=== PATIENT | male | born 1955 | race Caucasian/White ===

== ENCOUNTER 2016-07-19 20:05 | Inpatient (IN) | payer MEDICARE, OTHER ==
[~2016-07-19] VITALS: Ht 182.9 cm; Wt 101.2 kg
[2016-07-19 20:00] VITALS: BP 164/108
[~2016-07-19 20:05] MED LIST: [UNRECOGNIZED DRUG - OTHER]
[2016-07-19] MEDS ORDERED: IV NORMAL SALINE 500 ML BAG IV ONE (20:30)
[2016-07-19] MEDS ORDERED: ONDANSETRON 4 MG/2 ML VIAL IV ONE (20:30)
[2016-07-19] MEDS ORDERED: CHOL20004 PO (20:37)
[2016-07-19] MEDS ORDERED: METF10002 PO (20:37)
[2016-07-19] MEDS ORDERED: SITA100T PO (20:37)
[2016-07-19] MEDS ORDERED: GLIM4TAB3 PO (20:37)
[2016-07-19] MEDS ORDERED: AMLO5TAB2 PO (20:37)
[2016-07-19] MEDS ORDERED: ONDANSETRON 4 MG/2 ML VIAL ONE (20:51)
[2016-07-19 20:52] LABS: BASOPHILS % (AUTO) 0.3 % (0.0-2.0); EOSINOPHILS % (AUTO) 0.3 % (0.0-7.0); HEMATOCRIT 51.5 % (40-50); HEMOGLOBIN 16.7 G/DL (14.0-18.0); LYMPHOCYTES # (AUTO) 1.1 K/UL (0.8-4.8); LYMPHOCYTES % (AUTO) 13.6 % (20.5-51.5); MEAN CORPUSCULAR HEMOGLOBIN 27.4 UUG (27.0-31.0); MEAN CORPUSCULAR HGB CONC 33 g/dL (32.0-37.0); MEAN CORPUSCULAR VOLUME 84.5 FL (82.0-92.0); MONOCYTES # (AUTO) 0.3 K/UL (0.1-1.30); MONOCYTES % (AUTO) 3.1 % (0.0-11.0); NEUTROPHILS % (AUTO) 82.7 % (38.5-71.5); PLATELET COUNT (AUTO) 189 K/UL (150-450); RED CELL DISTRIBUTION WIDTH 13.1 % (11.5-14.5); WHITE BLOOD COUNT (AUTO) 8.4 K/UL (4.0-11.2)
[2016-07-19] MEDS ORDERED: CHOL100053 PO (20:52)
[2016-07-19] MEDS ORDERED: OMEG1CAP55 PO (20:52)
[2016-07-19] MEDS ORDERED: ERGO500047 PO (20:52)
[2016-07-19] MEDS ORDERED: LOSA100T15 PO (20:52)
[2016-07-19 21:00] LABS: CALCIUM 9.4 mg/dL (8.5-10.1); CREATININE 1.1 mg/dL (0.6-1.3); POTASSIUM 3.9 mmol/L (3.5-5.1)
[2016-07-19 21:07] LABS: BAND % (MANUAL) 5 % (0-10); LYMPHOCYTES % (MANUAL) 14 % (20-40); MONOCYTES % (MANUAL) 7 % (2-10); NEUTROPHILS % (MANUAL) 74 % (42-75); PLATELET ESTIMATE ADEQUATE
[2016-07-19 21:09] LABS: BILIRUBIN,TOTAL 0.7 mg/dL (0.1-1.0)
[2016-07-19 21:10] LABS: ALBUMIN 3.6 g/dL (3.4-5.0); BILIRUBIN,DIRECT 0.1 mg/dL (0.0-0.2); TOTAL PROTEIN, SERUM 7.6 g/dL (6.4-8.2)
[2016-07-19] MEDS ORDERED: INSULIN REGULAR, HUMAN 1,000 UNITS/10 ML VIAL SUBCUT ONE (21:15)
[2016-07-19] MEDS ORDERED: INSULIN REGULAR, HUMAN 300 UNIT/3 ML VIAL ONE (21:32)
[2016-07-19 22:10] VITALS: BP 164/108
[2016-07-19] MEDS ORDERED: MAGNESIUM HYDROXIDE 30 ML LIQUID UDC PO PRN (22:15)
[2016-07-19] MEDS ORDERED: Z GUARD REMEDY PASTE 57 GM TUBE TOP PRN (22:15)
[2016-07-19] MEDS ORDERED: HYDROCODONE/APAP 5-325MG TABLET PO PRN (22:15)
[2016-07-19] MEDS ORDERED: LABETALOL HCL 100 MG/20 ML VIAL IV PRN (22:15)
[2016-07-19] MEDS ORDERED: ZOLPIDEM 5 MG TABLET PO PRN (22:15)
[2016-07-19] MEDS ORDERED: ACETAMINOPHEN 325 MG TABLET PO PRN (22:15)
[2016-07-19] MEDS ORDERED: ONDANSETRON 4 MG/2 ML VIAL IV PRN (22:15)
[2016-07-19] MEDS ORDERED: ERGOCALCIFEROL 50,000 UNIT CAPSULE PO SCH (22:15)
[2016-07-19] MEDS ORDERED: DEXTROSE 50% 50 ML DISP.SYRIN IV PRN (22:30)
[2016-07-19 23:53] LABS: ALBUMIN 3.4 g/dL (3.4-5.0); BILIRUBIN,TOTAL 0.6 mg/dL (0.2-1.0); CREATININE 1.1 mg/dL (0.6-1.3); POTASSIUM 3.8 mmol/L (3.5-5.1); TOTAL PROTEIN, SERUM 7.3 g/dL (6.4-8.2)
[2016-07-20] VITALS (18 sets, daily range): BP systolic 121–154; BP diastolic 71–103
[2016-07-20 00:23] LABS: THYROID STIMULATING HORMONE 0.753 mIU/mL (0.358-3.740)
[2016-07-20] MEDS: BLOOD SUGAR DIAGNOSTIC 1 EACH STRIP VI SCH ×4 (00:59→19:38)
[2016-07-20] MEDS: INSULIN REGULAR, HUMAN 300 UNIT/3 ML VIAL SQ PRN ×4 (01:10→19:41)
[2016-07-20] MEDS ORDERED: INSULIN REGULAR, HUMAN 300 UNIT/3 ML VIAL ONE (01:26)
[2016-07-20 06:41] LABS: BASOPHILS % (AUTO) 0.5 % (0.0-2.0); EOSINOPHILS # (AUTO) 0.1 K/uL (0.0-0.7); EOSINOPHILS % (AUTO) 0.9 % (0.0-7.0); HEMATOCRIT 48.7 % (40-50); HEMOGLOBIN 16.3 G/DL (14.0-18.0); LYMPHOCYTES # (AUTO) 1.9 K/UL (0.8-4.8); LYMPHOCYTES % (AUTO) 22.6 % (20.5-51.5); MEAN CORPUSCULAR HEMOGLOBIN 28.1 UUG (27.0-31.0); MEAN CORPUSCULAR HGB CONC 33 g/dL (32.0-37.0); MEAN CORPUSCULAR VOLUME 84.2 FL (82.0-92.0); MONOCYTES # (AUTO) 0.5 K/UL (0.1-1.30); MONOCYTES % (AUTO) 6.5 % (0.0-11.0); NEUTROPHILS # (AUTO) 5.7 K/UL (1.8-8.9); NEUTROPHILS % (AUTO) 69.5 % (38.5-71.5); PLATELET COUNT (AUTO) 193 K/UL (150-450); RED BLOOD CELL COUNT(AUTO) 5.78 MIL/UL (4.7-6.1); RED CELL DISTRIBUTION WIDTH 13.5 % (11.5-14.5); WHITE BLOOD COUNT (AUTO) 8.2 K/UL (4.0-11.2)
[2016-07-20 06:52] LABS: CALCIUM 9.1 mg/dL (8.5-10.1); CREATININE 1.2 mg/dL (0.6-1.3); MAGNESIUM 1.5 mg/dL (1.8-2.4); PHOSPHOROUS 3.4 mg/dL (2.5-4.9)
[2016-07-20 07:45] LABS: *BLOOD, URINE Trace-lysed (NEGATIVE); *CLARITY,URINE CLEAR (CLEAR); *COLOR,URINE DARK YELLOW (YELLOW); *KETONES,URINE NEGATIVE (NEGATIVE); *UROBILINOGEN,URINE 0.2 E.U./dl (NORMAL); LEUKOCYTE ESTERASE ,URINE NEGATIVE (NEGATIVE); NITRITE, URINE NEGATIVE (NEGATIVE); PH,URINE 5.5 (5.0-8.0)
[2016-07-20 07:57] LABS: *BILIRUBIN,URIN 1+ (NEGATIVE); *PROTEIN,URINE 3+ (NEGATIVE)
[2016-07-20 07:58] LABS: UGLUCOSE 2+ (NEGATIVE)
[2016-07-20 08:00] LABS: ICTOTEST NEGATIVE (NEGATIVE)
[2016-07-20 08:01] LABS: BACTERIA,URINE FEW /HPF (NONE SEEN); MUCUS,URINE FEW /LPF (0-FEW); RBC,URINE 0-3 /HPF (0-3); SQUAMOUS EPITHELIAL CELL,UR FEW /HPF (NONE SEEN); WBC,URINE 0-3 /HPF (0-3); YEAST,URINE FEW /HPF (NONE SEEN)
[2016-07-20] MEDS: METFORMIN HCL 500 MG TABLET PO SCH ×2 (08:05→18:36)
[2016-07-20] MEDS: GLIMEPIRIDE 4 MG TABLET PO SCH ×2 (08:05→18:36)
[2016-07-20] MEDS: LINAGLIPTIN 5 MG TABLET PO SCH (08:53)
[2016-07-20] MEDS ORDERED: Medication Not On Formulary EA (Sitagliptin Phosphate (Januvia) 100 MG) PO SCH (09:00)
[2016-07-20] MEDS ORDERED: OMEGA ACID ETHYL ESTERS PO SCH (09:00)
[2016-07-20] MEDS ORDERED: CHOLECALCIFEROL PO SCH (09:00)
[2016-07-20] MEDS ORDERED: Medication Not On Formulary EA (Metformin Hcl 1,000 MG) PO SCH (09:00)
[2016-07-20] MEDS: MAGNESIUM SULFATE/D5W 100 ML IV SCH ×2 (09:38→10:42)
[2016-07-20] MEDS ORDERED: CHOL10002 PO (09:54)
[2016-07-20] MEDS ORDERED: ASPIRIN 325 MG TABLET PO STA (19:28)
[2016-07-20] MEDS: OMEGA-3 FATTY ACIDS/FISH OIL CAPSULE PO SCH (19:39)
[2016-07-21] VITALS (8 sets, daily range): BP systolic 113–144; BP diastolic 63–95
[2016-07-21] MEDS: BLOOD SUGAR DIAGNOSTIC 1 EACH STRIP VI SCH ×5 (00:12→21:34)
[2016-07-21 05:34] LABS: BASOPHILS % (AUTO) 0.5 % (0.0-2.0); EOSINOPHILS # (AUTO) 0.1 K/uL (0.0-0.7); EOSINOPHILS % (AUTO) 0.9 % (0.0-7.0); HEMATOCRIT 48.5 % (40-50); HEMOGLOBIN 16.4 G/DL (14.0-18.0); LYMPHOCYTES % (AUTO) 21.3 % (20.5-51.5); MEAN CORPUSCULAR HEMOGLOBIN 28.7 UUG (27.0-31.0); MEAN CORPUSCULAR HGB CONC 34 g/dL (32.0-37.0); MEAN CORPUSCULAR VOLUME 84.8 FL (82.0-92.0); MONOCYTES # (AUTO) 0.6 K/UL (0.1-1.30); MONOCYTES % (AUTO) 6.3 % (0.0-11.0); NEUTROPHILS # (AUTO) 6.6 K/UL (1.8-8.9); PLATELET COUNT (AUTO) 190 K/UL (150-450); RED BLOOD CELL COUNT(AUTO) 5.72 MIL/UL (4.7-6.1); RED CELL DISTRIBUTION WIDTH 13.4 % (11.5-14.5); WHITE BLOOD COUNT (AUTO) 9.3 K/UL (4.0-11.2)
[2016-07-21 05:36] LABS: CALCIUM 8.9 mg/dL (8.5-10.1); CREATININE 1.1 mg/dL (0.6-1.3); MAGNESIUM 1.5 mg/dL (1.8-2.4); POTASSIUM 3.6 mmol/L (3.5-5.1)
[2016-07-21] MEDS ORDERED: ASPIRIN 325 MG TABLET PO SCH (09:00)
[2016-07-21] MEDS ORDERED: CHOLECALCIFEROL 1,000 UNIT TABLET PO SCH (09:00)
[2016-07-21] MEDS: OMEGA-3 FATTY ACIDS/FISH OIL CAPSULE PO SCH ×2 (09:13→21:30)
[2016-07-21] MEDS: METFORMIN HCL 500 MG TABLET PO SCH (09:14)
[2016-07-21] MEDS: GLIMEPIRIDE 4 MG TABLET PO SCH ×2 (09:14→18:02)
[2016-07-21] MEDS: LINAGLIPTIN 5 MG TABLET PO SCH (09:16)
[2016-07-21] MEDS ORDERED: ROSU20TA PO (10:50)
[2016-07-21] MEDS ORDERED: ERGO500047 PO (11:12)
[2016-07-21] MEDS ORDERED: CLOPIDOGREL 75 MG TABLET PO STA (11:40)
[2016-07-21] MEDS ORDERED: IOHEXOL 350 100 ML INFUS..BTL ONE (12:23)
[2016-07-21] MEDS ORDERED: NORMAL SALINE FLUSH 10 ML DISP.SYRIN ONE (12:23)
[2016-07-21] MEDS ORDERED: IV NORMAL SALINE 250 ML IV ONE (12:23)
[2016-07-21] MEDS: INSULIN REGULAR, HUMAN 300 UNIT/3 ML VIAL SQ PRN ×3 (13:15→21:36)
[2016-07-21] MEDS: MAGNESIUM SULFATE/D5W 100 ML IV SCH ×2 (13:29→14:45)
[2016-07-21] MEDS ORDERED: ATORVASTATIN 40 MG TABLET PO SCH (21:00)
[2016-07-21] MEDS ORDERED: HOME MED MISCELLANEOUS PO SCH (21:00)
[2016-07-22] VITALS: BP 132/91
[2016-07-22 02:00] VITALS: BP 148/93
[2016-07-22 04:00] VITALS: BP 127/94
[2016-07-22 05:00] LABS: CALCIUM 8.9 mg/dL (8.5-10.1); MAGNESIUM 1.6 mg/dL (1.8-2.4); POTASSIUM 3.6 mmol/L (3.5-5.1)
[2016-07-22 05:02] LABS: BASOPHILS # (AUTO) 0.1 K/uL (0.0-8.0); BASOPHILS % (AUTO) 0.7 % (0.0-2.0); EOSINOPHILS # (AUTO) 0.1 K/uL (0.0-0.7); HEMATOCRIT 47.8 % (40-50); HEMOGLOBIN 16.1 G/DL (14.0-18.0); LYMPHOCYTES # (AUTO) 2.2 K/UL (0.8-4.8); LYMPHOCYTES % (AUTO) 27.2 % (20.5-51.5); MEAN CORPUSCULAR HEMOGLOBIN 28.4 UUG (27.0-31.0); MEAN CORPUSCULAR HGB CONC 34 g/dL (32.0-37.0); MEAN CORPUSCULAR VOLUME 84.6 FL (82.0-92.0); MONOCYTES # (AUTO) 0.7 K/UL (0.1-1.30); MONOCYTES % (AUTO) 8.1 % (0.0-11.0); NEUTROPHILS # (AUTO) 4.9 K/UL (1.8-8.9); PLATELET COUNT (AUTO) 186 K/UL (150-450); RED BLOOD CELL COUNT(AUTO) 5.66 MIL/UL (4.7-6.1); RED CELL DISTRIBUTION WIDTH 13.3 % (11.5-14.5)
[2016-07-22 06:00] VITALS: BP 152/99
[2016-07-22 08:00] VITALS: BP 125/84
[2016-07-22] MEDS: BLOOD SUGAR DIAGNOSTIC 1 EACH STRIP VI SCH ×2 (08:14→12:12)
[2016-07-22] MEDS ORDERED: CLOPIDOGREL 75 MG TABLET PO SCH (09:00)
[2016-07-22] MEDS ORDERED: ASPIRIN EC 81 MG TABLET.DR PO SCH (09:00)
[2016-07-22] MEDS: OMEGA-3 FATTY ACIDS/FISH OIL CAPSULE PO SCH (09:12)
[2016-07-22] MEDS: GLIMEPIRIDE 4 MG TABLET PO SCH (09:12)
[2016-07-22 12:00] VITALS: BP 145/99
[2016-07-22] MEDS: INSULIN REGULAR, HUMAN 300 UNIT/3 ML VIAL SQ PRN (12:16)
[2016-07-22] MEDS ORDERED: ASPI-618 PO (13:27)
[2016-07-22] MEDS ORDERED: Zolpidem Tartrate PO (13:27)
[2016-07-22] MEDS ORDERED: CLOP75TA2 PO (13:27)
[2016-07-22] MEDS ORDERED: HYDR-3326 PO (13:27)
[2016-07-22] MEDS ORDERED: Blood Sugar Diagnostic VI (13:27)
[2016-07-22] MEDS ORDERED: MAGNESIUM SULFATE/D5W 100 ML IV SCH (14:30)
[2016-07-23] MEDS ORDERED: METFORMIN HCL 500 MG TABLET PO SCH (18:00)
[2016-07-24] MEDS ORDERED: ERGOCALCIFEROL 50,000 UNIT CAPSULE PO SCH (09:00)
== END 2016-07-22 15:10 | DRG 64 ==
LOC: ER 20:05 → TELE 22:05 → TELE-TD 23:35 → CCU 07-20 00:03
PROVIDERS: ADMIT Family Medicine; ATTEND Family Medicine
DX: I63.011 Cerebral infarction due to thrombosis of right vertebral artery (principal); Q04.3 Other reduction deformities of brain; C79.31 Secondary malignant neoplasm of brain; R26.0 Ataxic gait; I10 Essential (primary) hypertension; R29.700 NIHSS score 0; Z87.891 Personal history of nicotine dependence; Z92.3 Personal history of irradiation; Z85.118 Personal history of other malignant neoplasm of bronchus and lung; Z82.49 Family history of ischemic heart disease and other diseases of the circulatory system; Z80.51 Family history of malignant neoplasm of kidney; E78.5 Hyperlipidemia, unspecified; E55.9 Vitamin D deficiency, unspecified; E11.65 Type 2 diabetes mellitus with hyperglycemia; Z79.84 Long term (current) use of oral hypoglycemic drugs; G93.89 Other specified disorders of brain; Z92.21 Personal history of antineoplastic chemotherapy
CPT/HCPCS: 36415; 70030-TC; 70450; 70496; 70551; 71010; 83690; 83735; 84100; 84443; 85025; 85651; 85730; 92610; 93005; 93307; 97001; 97003; 97116; 97530; A4663; J1815; J2405; J3475; J3490; J7040; J7050; Q9967

== ENCOUNTER 2016-07-22 15:52 | Inpatient (IN) | payer MEDICARE, OTHER ==
[~2016-07-22] VITALS: Ht 182.9 cm; Wt 101.2 kg
[~2016-07-22 15:52] MED LIST changes: +AMLO5TAB2 PO; +ASPI-618 PO; +Blood Sugar Diagnostic VI; +CLOP75TA2 PO; +ERGO500047 PO; +GLIM4TAB3 PO; +HYDR-3326 PO; +LOSA100T15 PO; +METF10002 PO; +OMEG1CAP55 PO; +ROSU20TA PO; +Zolpidem Tartrate PO; -[UNRECOGNIZED DRUG - OTHER]
[2016-07-22 17:02] VITALS: BP 144/97
--- NOTE | 2016-07-22 18:30 | NUR ---
PT Is in no acute distress. Skin intact. Pt strength equal on both sides. Medications reconciled. New Orders received from Dr Kimbrough. Call light is within reach.
[2016-07-22] MEDS ORDERED: ZOLPIDEM 5 MG TABLET PO PRN (18:45)
[2016-07-22] MEDS ORDERED: HYDROCODONE/APAP 5-325MG TABLET PO PRN (18:45)
[2016-07-22] MEDS ORDERED: DEXTROSE 50% 50 ML DISP.SYRIN IV PRN (19:00)
--- NOTE | 2016-07-22 19:30 | NUR ---
RECEIVED PATIENT AWAKE, ALERT AND ORIENTED X3, VISITING WITH FAMILY AT BEDSIDE. C/O SOME ATAXIA TO THE RIGHT WHEN AMBULATING. ON BEDREST TONIGHT UNTIL PT EVAL IN AM. EQUAL BILATERAL HANDGRIPS AND FOOT STRENGTHS. NO C/O PAIN. IN NAD AT THIS TIME.CALL LIGHT WITHIN REACH
[2016-07-22 20:00] VITALS: BP 150/106
[2016-07-22] MEDS ORDERED: CLONIDINE HCL 0.1 MG TABLET PO PRN (20:45)
[2016-07-22] MEDS: ATORVASTATIN 40 MG TABLET PO SCH (21:27)
[2016-07-22] MEDS: BLOOD SUGAR DIAGNOSTIC 1 EACH STRIP VI SCH (21:31)
[2016-07-22 21:32] VITALS: BP 140/90
[2016-07-22] MEDS: INSULIN REGULAR, HUMAN 300 UNITS/3 ML VIAL SQ PRN (21:37)
--- NOTE | 2016-07-23 06:00 | NUR ---
SLEPT WELL TONIGHT.NO C/O THIS MORNING. COMFORTABLE.NO CHANGE IN NEURO STATUS. CALL LIGHT WITHIN REACH AAT
[2016-07-23] MEDS: BLOOD SUGAR DIAGNOSTIC 1 EACH STRIP VI SCH ×4 (07:03→21:32)
[2016-07-23 08:00] VITALS: BP 131/95
[2016-07-23] MEDS: GLIMEPIRIDE 4 MG TABLET PO SCH ×2 (08:43→18:07)
[2016-07-23] MEDS: INSULIN REGULAR, HUMAN 300 UNIT/3 ML VIAL SQ PRN (08:49)
[2016-07-23] MEDS: CLOPIDOGREL 75 MG TABLET PO SCH (08:50)
[2016-07-23] MEDS: AMLODIPINE 5 MG TABLET PO SCH (08:51)
[2016-07-23] MEDS: ASPIRIN 81 MG TAB.CHEW PO SCH (08:51)
[2016-07-23] MEDS: LOSARTAN POTASSIUM 50 MG TABLET PO SCH (08:52)
[2016-07-23] MEDS ORDERED: Medication Not On Formulary EA (Losartan Potassium 100 MG) PO SCH (09:00)
[2016-07-23] MEDS ORDERED: Medication Not On Formulary EA (Metformin Hcl 1,000 MG) PO SCH (09:00)
[2016-07-23] MEDS: OMEGA-3 FATTY ACIDS/FISH OIL CAPSULE PO SCH (09:14)
[2016-07-23] MEDS: INSULIN REGULAR, HUMAN 300 UNITS/3 ML VIAL SQ PRN ×3 (11:39→21:38)
--- NOTE | 2016-07-23 14:58 | NUR ---
IDT MEETING 07/23/16
[2016-07-23 16:32] VITALS: BP 112/70
[2016-07-23] MEDS ORDERED: HYDROCODONE/APAP 5-325MG TABLET PO PRN (16:45)
[2016-07-23] MEDS: METFORMIN HCL 500 MG TABLET PO SCH (18:07)
--- NOTE | 2016-07-23 20:00 | NUR ---
received to care, lying in bed, pleasant upon approach. uses urinal. assisted to all needs. denies pain or discomfort. c/l in reach. will continue to monitor.
[2016-07-23] MEDS: ATORVASTATIN 40 MG TABLET PO SCH (21:29)
--- NOTE | 2016-07-23 22:00 | NUR ---
appears to be asleep. no distress noted.
--- NOTE | 2016-07-24 05:00 | NUR ---
pt is now awake. had 1 episode of emesis, 90 ml of yellow liquid. stated immediately afterward that he felt better. denies any nausea. will continue to monitor closely.
--- NOTE | 2016-07-24 06:45 | NUR ---
is being seen by OT. continues to deny nausea/vomiting. will continue to monitor.
[2016-07-24] MEDS: BLOOD SUGAR DIAGNOSTIC 1 EACH STRIP VI SCH ×4 (06:53→22:58)
[2016-07-24 07:30] VITALS: BP 108/72
[2016-07-24] MEDS: AMLODIPINE 5 MG TABLET PO SCH (08:07)
[2016-07-24] MEDS: OMEGA-3 FATTY ACIDS/FISH OIL CAPSULE PO SCH (08:07)
[2016-07-24] MEDS: METFORMIN HCL 500 MG TABLET PO SCH ×2 (08:07→16:24)
[2016-07-24] MEDS: LOSARTAN POTASSIUM 50 MG TABLET PO SCH (08:08)
[2016-07-24] MEDS: CLOPIDOGREL 75 MG TABLET PO SCH (08:08)
[2016-07-24] MEDS: ASPIRIN 81 MG TAB.CHEW PO SCH (08:08)
[2016-07-24] MEDS: GLIMEPIRIDE 4 MG TABLET PO SCH ×2 (08:08→16:24)
[2016-07-24] MEDS: ERGOCALCIFEROL 50,000 UNIT CAPSULE PO SCH (08:09)
[2016-07-24] MEDS: INSULIN REGULAR, HUMAN 300 UNIT/3 ML VIAL SQ PRN ×3 (08:15→16:29)
[2016-07-24] MEDS ORDERED: CLOPIDOGREL 75 MG TABLET PO SCH (09:00)
[2016-07-24] MEDS ORDERED: ASPIRIN EC 81 MG TABLET.DR PO SCH (09:00)
--- NOTE | 2016-07-24 13:07 | NUR ---
POST PT PATIENT EATING LUNCH. TOLERATED WELL WITH PT.
--- NOTE | 2016-07-24 16:18 | NUR ---
Building Contractor SW met with patient at beside to assess pt needs and provide support. The patient is a 61 year old male admitted for Cerebral ataxia. The patient was laying in his bed during the interview. He was alert and oriented x3. The patient was calm and cooperative during the interview. The patient's mood was depressed and withdrawn. He did not attempt to engage in interview with the interviewer. He stated, "Everything is okay. Thank you." The patient would like to return home upon discharge. The patient stated that his emergency contact is his son Thad Mccormack [phone]. The patient has good social support at home. SW engaged in active listening and provided supportive counseling during the interview. SW will be available as needed.
[2016-07-24 20:43] VITALS: BP 125/88
[2016-07-24] MEDS: ATORVASTATIN 40 MG TABLET PO SCH (21:28)
[2016-07-24] MEDS: INSULIN REGULAR, HUMAN 300 UNITS/3 ML VIAL SQ PRN (23:48)
[2016-07-25 06:49] LABS: BASOPHILS % (AUTO) 0.5 % (0.0-2.0); EOSINOPHILS # (AUTO) 0.1 K/uL (0.0-0.7); HEMATOCRIT 49.8 % (40-50); LYMPHOCYTES # (AUTO) 2.5 K/UL (0.8-4.8); LYMPHOCYTES % (AUTO) 29.7 % (20.5-51.5); MEAN CORPUSCULAR HEMOGLOBIN 29.1 UUG (27.0-31.0); MEAN CORPUSCULAR HGB CONC 34 g/dL (32.0-37.0); MEAN CORPUSCULAR VOLUME 84.9 FL (82.0-92.0); MONOCYTES # (AUTO) 0.5 K/UL (0.1-1.30); MONOCYTES % (AUTO) 6.2 % (0.0-11.0); NEUTROPHILS # (AUTO) 5.4 K/UL (1.8-8.9); NEUTROPHILS % (AUTO) 62.6 % (38.5-71.5); PLATELET COUNT (AUTO) 188 K/UL (150-450); RED BLOOD CELL COUNT(AUTO) 5.86 MIL/UL (4.7-6.1); WHITE BLOOD COUNT (AUTO) 8.5 K/UL (4.0-11.2)
[2016-07-25 07:19] LABS: THYROID STIMULATING HORMONE 1.624 mIU/mL (0.358-3.740)
[2016-07-25] MEDS: BLOOD SUGAR DIAGNOSTIC 1 EACH STRIP VI SCH ×4 (07:30→20:31)
[2016-07-25 07:52] LABS: BILIRUBIN,TOTAL 0.4 mg/dL (0.2-1.0); CREATININE 1.2 mg/dL (0.6-1.3); MAGNESIUM 1.5 mg/dL (1.8-2.4); PHOSPHOROUS 3.9 mg/dL (2.5-4.9); POTASSIUM 4.1 mmol/L (3.5-5.1); TOTAL PROTEIN, SERUM 7.1 g/dL (6.4-8.2)
[2016-07-25 08:00] VITALS: BP 116/81
[2016-07-25] MEDS: AMLODIPINE 5 MG TABLET PO SCH (09:00)
[2016-07-25] MEDS: OMEGA-3 FATTY ACIDS/FISH OIL CAPSULE PO SCH (10:16)
[2016-07-25] MEDS: GLIMEPIRIDE 4 MG TABLET PO SCH ×2 (10:16→17:58)
[2016-07-25] MEDS: CLOPIDOGREL 75 MG TABLET PO SCH (10:16)
[2016-07-25] MEDS: ASPIRIN 81 MG TAB.CHEW PO SCH (10:16)
[2016-07-25] MEDS: LOSARTAN POTASSIUM 50 MG TABLET PO SCH (10:17)
[2016-07-25] MEDS: METFORMIN HCL 500 MG TABLET PO SCH ×2 (10:17→17:58)
[2016-07-25] MEDS: INSULIN REGULAR, HUMAN 300 UNIT/3 ML VIAL SQ PRN (12:32)
[2016-07-25] MEDS ORDERED: MAGNESIUM SULFATE/D5W 100 ML IV SCH (15:15)
--- NOTE | 2016-07-25 18:24 | NUR ---
DAILY NURSING NOTE ENCOURAGE HIM TO EAT EVENING BLOOD SUGAR WAS 81. HE HAD SMALL AMT OF LUNCH AT 75% OF DINNER. LEFT SNACK AT HIS BED SIDE ENCOURAGE HIM TO HAVE FAMILY BRING FOODS ZENA [employer] LIKES
--- NOTE | 2016-07-25 19:33 | NUR ---
PT VOLUNTARILY WALKED TWICE AROUND FROM STATION TO ROOM . PT WALKED WITH WALKER AND WITH SUPERVISION . PT REQUESTED CPM. WILL CONTINUE TO REASSESS PATIENT FOR DISTRESS
[2016-07-25] MEDS: ATORVASTATIN 40 MG TABLET PO SCH (20:24)
[2016-07-25 20:30] VITALS: BP 128/92
[2016-07-26] MEDS: BLOOD SUGAR DIAGNOSTIC 1 EACH STRIP VI SCH ×4 (07:08→20:16)
[2016-07-26 08:00] VITALS: BP 128/85
[2016-07-26] MEDS: OMEGA-3 FATTY ACIDS/FISH OIL CAPSULE PO SCH (10:52)
[2016-07-26] MEDS: METFORMIN HCL 500 MG TABLET PO SCH ×2 (10:53→17:25)
[2016-07-26] MEDS: AMLODIPINE 5 MG TABLET PO SCH (10:53)
[2016-07-26] MEDS: GLIMEPIRIDE 4 MG TABLET PO SCH ×2 (10:53→17:25)
[2016-07-26] MEDS: CLOPIDOGREL 75 MG TABLET PO SCH (10:53)
[2016-07-26] MEDS: LOSARTAN POTASSIUM 50 MG TABLET PO SCH (10:53)
[2016-07-26] MEDS: ASPIRIN 81 MG TAB.CHEW PO SCH (10:54)
[2016-07-26] MEDS: ATORVASTATIN 40 MG TABLET PO SCH (20:16)
[2016-07-26 20:34] VITALS: BP 105/75
[2016-07-26] MEDS: INSULIN REGULAR, HUMAN 300 UNITS/3 ML VIAL SQ PRN (20:43)
--- NOTE | 2016-07-27 03:19 | NUR ---
Patient reported an episode of upset stomach with vomiting. Patient does not want nausea medication, but accepted a Diet lemon torres martinez soda and crackers to help settle his stomach. Will f/u. Will continue to monitor
--- NOTE | 2016-07-27 04:20 | NUR ---
No stomach discomfort or vomiting reported by patient. Will continue to monitor
[2016-07-27] MEDS: BLOOD SUGAR DIAGNOSTIC 1 EACH STRIP VI SCH ×4 (06:59→21:48)
[2016-07-27 08:00] VITALS: BP 101/71
--- NOTE | 2016-07-27 08:00 | NUR ---
Discussed plan of care with pt re: fall precaution and try to be as independent as possible. Pt agreeable with plan of care. Call light is within reach.
[2016-07-27] MEDS: GLIMEPIRIDE 4 MG TABLET PO SCH ×2 (08:06→16:45)
[2016-07-27] MEDS: OMEGA-3 FATTY ACIDS/FISH OIL CAPSULE PO SCH (08:06)
[2016-07-27] MEDS: METFORMIN HCL 500 MG TABLET PO SCH ×2 (08:06→16:45)
[2016-07-27] MEDS: ASPIRIN 81 MG TAB.CHEW PO SCH (08:07)
[2016-07-27] MEDS: AMLODIPINE 5 MG TABLET PO SCH (08:07)
[2016-07-27] MEDS: CLOPIDOGREL 75 MG TABLET PO SCH (08:07)
[2016-07-27] MEDS: LOSARTAN POTASSIUM 50 MG TABLET PO SCH (08:07)
[2016-07-27] MEDS: INSULIN REGULAR, HUMAN 300 UNIT/3 ML VIAL SQ PRN (08:11)
[2016-07-27] MEDS ORDERED: MAG HYDROX/AL HYDROX/SIMETH 30 ML LIQUID UDC PO PRN (09:00)
--- NOTE | 2016-07-27 09:00 | NUR ---
Pt c/o stomach upset. Spoke with Dedra got new orders for MAALOX. Maalox given. Will monitor pt. Pt had very poor appetite for breakfast. Pt is in no acute distress. Call light is within reach.
[2016-07-27 11:35] VITALS: BP 111/68
--- NOTE | 2016-07-27 14:00 | NUR ---
Pt c/o having an "acidic stomach" Called in to Dr sam. Armando ordered and given.
[2016-07-27] MEDS: PANTOPRAZOLE SODIUM 40 MG TABLET.DR PO SCH (14:22)
[2016-07-27] MEDS: PATIENT MAY USE OWN MED- MD OK PO SCH (16:24)
--- NOTE | 2016-07-27 18:00 | NUR ---
Pt is in no acute distress. Call light is within in reach.
[2016-07-27 20:52] VITALS: BP 124/92
[2016-07-27] MEDS: ATORVASTATIN 40 MG TABLET PO SCH (21:41)
[2016-07-28] MEDS: PANTOPRAZOLE SODIUM 40 MG TABLET.DR PO SCH (07:01)
[2016-07-28] MEDS: BLOOD SUGAR DIAGNOSTIC 1 EACH STRIP VI SCH ×4 (07:04→20:24)
[2016-07-28 07:20] VITALS: BP 124/78
--- NOTE | 2016-07-28 08:00 | NUR ---
Pt denies of any episodes of vomiting last night. Pt states he if feeling "a little bit better" pt has better appetite today than yesterday. Discussed with pt plan of care re: pain management, fall precautions, and being as independently safe doing self care. Pt agreeable with plan. Pt also was calling for assistance when needed. Pt alert and oriented x 4 and able to make his needs known. Call light is within reach.
[2016-07-28] MEDS: PATIENT MAY USE OWN MED- MD OK PO SCH (08:21)
[2016-07-28] MEDS: ASPIRIN 81 MG TAB.CHEW PO SCH (08:21)
[2016-07-28] MEDS: GLIMEPIRIDE 4 MG TABLET PO SCH ×2 (08:21→17:34)
[2016-07-28] MEDS: OMEGA-3 FATTY ACIDS/FISH OIL CAPSULE PO SCH (08:22)
[2016-07-28] MEDS: AMLODIPINE 5 MG TABLET PO SCH (08:22)
[2016-07-28] MEDS: METFORMIN HCL 500 MG TABLET PO SCH ×2 (08:22→17:34)
[2016-07-28] MEDS: LOSARTAN POTASSIUM 50 MG TABLET PO SCH (08:23)
[2016-07-28] MEDS: CLOPIDOGREL 75 MG TABLET PO SCH (08:23)
[2016-07-28] MEDS: INSULIN REGULAR, HUMAN 300 UNIT/3 ML VIAL SQ PRN (12:18)
--- NOTE | 2016-07-28 15:53 | NUR ---
Pt tolerated physical therapy sessions. Pt denies any c/o pain. pt doesnt like food from cafeteria but eats family brought in foods.
--- NOTE | 2016-07-28 19:30 | NUR ---
RECEIVED PATIENT IN BED WITH FAMILY SUPPORT AT BEDSIDE. LESS SAD TODAY REGARDING RELATIVES RECENT PASSING.IN NAD AT PRESENT. NO C/O PAIN, N/V OR DIARRHEA.EATING BETTER TONIGHT WITH SPOUSE'S FOOD.CALL LIGHT WITHIN REACH AAT.
[2016-07-28 20:10] VITALS: BP 101/62
[2016-07-28] MEDS: ATORVASTATIN 40 MG TABLET PO SCH (20:20)
[2016-07-28] MEDS: INSULIN REGULAR, HUMAN 300 UNITS/3 ML VIAL SQ PRN (20:28)
--- NOTE | 2016-07-29 06:00 | NUR ---
sLEPT UNTIL 0400 WITHOUT C/O. NO C/O PAIN OR CHANGE IN NEURO STATUS TONIGHT.AMBULATES TO TOILET WITH STANDBY ASSIST, WITH SOME LEANING TO RIGHT. PATIENT SEEMS TO THINK HIS GAIT IS IMPROVING SINCE ADMISSION.NO EMESIS TONIGHT.NO DIARRHEA EITHER. CALL LIGHT WITHIN REACH AAT. FREE FROM INJURY THIS SHIFT
[2016-07-29] MEDS: PANTOPRAZOLE SODIUM 40 MG TABLET.DR PO SCH (06:31)
[2016-07-29] MEDS: BLOOD SUGAR DIAGNOSTIC 1 EACH STRIP VI SCH ×4 (06:37→21:45)
[2016-07-29] MEDS: METFORMIN HCL 500 MG TABLET PO SCH ×2 (07:52→17:13)
[2016-07-29] MEDS: GLIMEPIRIDE 4 MG TABLET PO SCH ×2 (07:52→17:13)
[2016-07-29 08:00] VITALS: BP 115/75
--- NOTE | 2016-07-29 08:00 | NUR ---
RECEIVED PATIENT AWAKE IN BED. WITH COMPLAINTS OF NAUSEA. PROTONIX GIVEN AT 7AM. NO VOMITING NOTED. NO S/S OF DISTRESS.
[2016-07-29] MEDS: OMEGA-3 FATTY ACIDS/FISH OIL CAPSULE PO SCH (09:04)
[2016-07-29] MEDS: AMLODIPINE 5 MG TABLET PO SCH (09:05)
[2016-07-29] MEDS: CLOPIDOGREL 75 MG TABLET PO SCH (09:05)
[2016-07-29] MEDS: ASPIRIN 81 MG TAB.CHEW PO SCH (09:05)
[2016-07-29] MEDS: LOSARTAN POTASSIUM 50 MG TABLET PO SCH (09:05)
[2016-07-29] MEDS: PATIENT MAY USE OWN MED- MD OK PO SCH (09:12)
--- NOTE | 2016-07-29 10:58 | NUR ---
PATIENT'S NAUSEA DECREASED. WILL CONTINUE TO MONITOR. NO ABDOMINAL PAIN, VOMITING OR DIARRHEA NOTED. TRANSFERRED PATIENT TO ROOM 104 PER CIGAR SORTER LATOYA. PATIENT AGREES OF TRANSFER. FOR OT AT THIS TIME.
[2016-07-29] MEDS: INSULIN REGULAR, HUMAN 300 UNITS/3 ML VIAL SQ PRN (12:20)
[2016-07-29 20:00] VITALS: BP 123/90
--- NOTE | 2016-07-29 20:00 | NUR ---
PATIENT AWAKE IN BED WITH FAMILY AT BEDSIDE. A/OX4. DENIES PAIN OR DISCOMFORT. DENIES NAUSEA. NO RESP. DISTRESS NOTED. VSS. CALL LIGHT IN REACH. ALL NEEDS ATTENDED. WILL CONTINUE TO MONITOR.
[2016-07-29] MEDS: ATORVASTATIN 40 MG TABLET PO SCH (20:32)
[2016-07-30] MEDS: PANTOPRAZOLE SODIUM 40 MG TABLET.DR PO SCH (06:27)
[2016-07-30] MEDS: BLOOD SUGAR DIAGNOSTIC 1 EACH STRIP VI SCH ×5 (06:27→21:26)
--- NOTE | 2016-07-30 06:41 | NUR ---
PATIENTS BLOOD SUGAR IS 63. PATIENT IS ASYMPTOMATIC. DENIES ANY PAIN OR DISCOMFORT. WILL RECHECK BS. CALL LIGHT IN REACH. ALL NEEDS ATTENDED. WILL CONTINUE TO MONITOR.
[2016-07-30 07:00] LABS: BASOPHILS % (AUTO) 0.4 % (0.0-2.0); EOSINOPHILS # (AUTO) 0.1 K/uL (0.0-0.7); EOSINOPHILS % (AUTO) 0.8 % (0.0-7.0); HEMATOCRIT 47.7 % (40-50); HEMOGLOBIN 16.8 G/DL (14.0-18.0); LYMPHOCYTES % (AUTO) 20.2 % (20.5-51.5); MEAN CORPUSCULAR HEMOGLOBIN 29.9 UUG (27.0-31.0); MEAN CORPUSCULAR HGB CONC 35 g/dL (32.0-37.0); MEAN CORPUSCULAR VOLUME 85.1 FL (82.0-92.0); MONOCYTES # (AUTO) 0.9 K/UL (0.1-1.30); MONOCYTES % (AUTO) 8.7 % (0.0-11.0); NEUTROPHILS # (AUTO) 6.9 K/UL (1.8-8.9); NEUTROPHILS % (AUTO) 69.9 % (38.5-71.5); PLATELET COUNT (AUTO) 211 K/UL (150-450); RED BLOOD CELL COUNT(AUTO) 5.61 MIL/UL (4.7-6.1); WHITE BLOOD COUNT (AUTO) 9.9 K/UL (4.0-11.2)
--- NOTE | 2016-07-30 07:02 | NUR ---
PATIENT AWAKE IN BED. RECHECKED PATIENTS BLOOD SUGAR 104.
[2016-07-30 07:17] LABS: CREATININE 1.4 mg/dL (0.6-1.3); MAGNESIUM 1.6 mg/dL (1.8-2.4); PHOSPHOROUS 3.6 mg/dL (2.5-4.9); POTASSIUM 4.2 mmol/L (3.5-5.1)
--- NOTE | 2016-07-30 09:00 | NUR ---
PATIENT JUST RETURNED FROM THERAPY. TOLERATED THERAPY WELL. NO COMPLAINTS OF PAIN. NOS/S OF DISTRESS. BP OF 114/75. HELD COZAAR 5 MG FOR NOW. WILL CONTINUE TO MONITOR.
[2016-07-30] MEDS: CLOPIDOGREL 75 MG TABLET PO SCH (09:07)
[2016-07-30] MEDS: METFORMIN HCL 500 MG TABLET PO SCH ×2 (09:07→17:37)
[2016-07-30] MEDS: OMEGA-3 FATTY ACIDS/FISH OIL CAPSULE PO SCH (09:07)
[2016-07-30] MEDS: ASPIRIN 81 MG TAB.CHEW PO SCH (09:08)
[2016-07-30] MEDS: AMLODIPINE 5 MG TABLET PO SCH (09:08)
[2016-07-30] MEDS: GLIMEPIRIDE 4 MG TABLET PO SCH ×2 (09:18→17:37)
[2016-07-30] MEDS: PATIENT MAY USE OWN MED- MD OK PO SCH (09:18)
[2016-07-30 09:44] VITALS: BP 114/75
[2016-07-30] MEDS: INSULIN REGULAR, HUMAN 300 UNIT/3 ML VIAL SQ PRN (11:47)
[2016-07-30] MEDS: LOSARTAN POTASSIUM 50 MG TABLET PO SCH (11:52)
[2016-07-30] MEDS ORDERED: MAGNESIUM OXIDE 400 MG TABLET PO ONE (12:45)
--- NOTE | 2016-07-30 15:03 | NUR ---
IDT MEETING 07/30/16
--- NOTE | 2016-07-30 16:00 | NUR ---
PATIENT DIAPHORETIC. BP AT 111/74. GLUCOSE CHECK AT 71. OFFERED ORANGE JUICE.
--- NOTE | 2016-07-30 17:00 | NUR ---
RECHECKED BLOOD SUGAR, NOW AT 152. NO S/S OF DISTRESS AND DISCOMFORT AT THIS TIME. ATTENDED TO NEEDS PROMPTLY ENSURED SAFETY
[2016-07-30 19:43] VITALS: BP 130/94
[2016-07-30] MEDS: INSULIN REGULAR, HUMAN 300 UNITS/3 ML VIAL SQ PRN (19:50)
[2016-07-30] MEDS: ATORVASTATIN 40 MG TABLET PO SCH (21:27)
[2016-07-31] MEDS: PANTOPRAZOLE SODIUM 40 MG TABLET.DR PO SCH (06:28)
[2016-07-31] MEDS: BLOOD SUGAR DIAGNOSTIC 1 EACH STRIP VI SCH ×4 (06:28→21:02)
--- NOTE | 2016-07-31 06:32 | NUR ---
Patient alert and oriented and verbally able to let needs known. Had no complains of pain or discomfort throughout the night. Slept well all night, has call light within reach, will continue to monitor.
--- NOTE | 2016-07-31 07:11 | NUR ---
Patient received from hourly shift, resting comfortably in bed. No signs of acute distress noted, respirations even and unlabored on RA. Skin clean, dry, and intact. No verbalized needs noted at this time, no complaints of pain. Safety precautions maintained. Call light within reach.
[2016-07-31 07:52] LABS: BASOPHILS % (AUTO) 0.3 % (0.0-2.0); EOSINOPHILS # (AUTO) 0.1 K/uL (0.0-0.7); EOSINOPHILS % (AUTO) 0.8 % (0.0-7.0); HEMATOCRIT 47.2 % (40-50); HEMOGLOBIN 16.3 G/DL (14.0-18.0); LYMPHOCYTES # (AUTO) 1.8 K/UL (0.8-4.8); LYMPHOCYTES % (AUTO) 17.5 % (20.5-51.5); MEAN CORPUSCULAR HEMOGLOBIN 29.1 UUG (27.0-31.0); MEAN CORPUSCULAR HGB CONC 35 g/dL (32.0-37.0); MEAN CORPUSCULAR VOLUME 84.6 FL (82.0-92.0); MONOCYTES # (AUTO) 0.9 K/UL (0.1-1.30); MONOCYTES % (AUTO) 9.4 % (0.0-11.0); NEUTROPHILS # (AUTO) 7.3 K/UL (1.8-8.9); PLATELET COUNT (AUTO) 188 K/UL (150-450); RED BLOOD CELL COUNT(AUTO) 5.59 MIL/UL (4.7-6.1); WHITE BLOOD COUNT (AUTO) 10.1 K/UL (4.0-11.2)
[2016-07-31 08:00] VITALS: BP 103/67
[2016-07-31 08:19] LABS: CREATININE 1.2 mg/dL (0.6-1.3); MAGNESIUM 1.5 mg/dL (1.8-2.4); PHOSPHOROUS 2.9 mg/dL (2.5-4.9); POTASSIUM 3.8 mmol/L (3.5-5.1)
[2016-07-31] MEDS: OMEGA-3 FATTY ACIDS/FISH OIL CAPSULE PO SCH (08:40)
[2016-07-31] MEDS: METFORMIN HCL 500 MG TABLET PO SCH ×2 (08:40→17:38)
[2016-07-31] MEDS: GLIMEPIRIDE 4 MG TABLET PO SCH ×2 (08:40→17:38)
[2016-07-31] MEDS: LOSARTAN POTASSIUM 50 MG TABLET PO SCH (08:40)
[2016-07-31] MEDS: CLOPIDOGREL 75 MG TABLET PO SCH (08:40)
[2016-07-31] MEDS: ASPIRIN 81 MG TAB.CHEW PO SCH (08:40)
[2016-07-31] MEDS: ERGOCALCIFEROL 50,000 UNIT CAPSULE PO SCH (08:41)
[2016-07-31] MEDS: AMLODIPINE 5 MG TABLET PO SCH (08:41)
[2016-07-31] MEDS: PATIENT MAY USE OWN MED- MD OK PO SCH (08:41)
[2016-07-31] MEDS ORDERED: MAGNESIUM OXIDE 400 MG TABLET PO ONE (09:30)
[2016-07-31] MEDS: INSULIN REGULAR, HUMAN 300 UNITS/3 ML VIAL SQ PRN (12:17)
[2016-07-31 20:35] VITALS: BP 112/74
[2016-07-31] MEDS: ATORVASTATIN 40 MG TABLET PO SCH (21:01)
[2016-08-01] MEDS: BLOOD SUGAR DIAGNOSTIC 1 EACH STRIP VI SCH ×4 (06:52→20:37)
[2016-08-01] MEDS: PANTOPRAZOLE SODIUM 40 MG TABLET.DR PO SCH (06:52)
--- NOTE | 2016-08-01 06:55 | NUR ---
Patient alert and oriented and verbally able to let needs known. Slept well throughout the night, had no complains of pain or discomfort. no signs of respiratory distress noted. Patient does have call light within reach, all needs attended to .
[2016-08-01 08:02] VITALS: BP 105/66
[2016-08-01] MEDS: METFORMIN HCL 500 MG TABLET PO SCH ×2 (08:37→18:00)
[2016-08-01] MEDS: CLOPIDOGREL 75 MG TABLET PO SCH (08:37)
[2016-08-01] MEDS: ASPIRIN 81 MG TAB.CHEW PO SCH (08:37)
[2016-08-01] MEDS: GLIMEPIRIDE 4 MG TABLET PO SCH ×2 (08:37→18:00)
[2016-08-01] MEDS: OMEGA-3 FATTY ACIDS/FISH OIL CAPSULE PO SCH (08:37)
[2016-08-01] MEDS: PATIENT MAY USE OWN MED- MD OK PO SCH (08:38)
[2016-08-01] MEDS: LOSARTAN POTASSIUM 50 MG TABLET PO SCH (08:38)
[2016-08-01] MEDS: AMLODIPINE 5 MG TABLET PO SCH (08:38)
--- NOTE | 2016-08-01 12:45 | NUR ---
Patient complaints of feeling dizzy and lightheaded, requested to have blood sugar checked. Result at 46. Patient immediately given 2 orange juices with added sugar and 2 low fat milk per protocol. Will continue to monitor symptoms and recheck blood sugar. No other needs at this time. Safety precautions maintained.
--- NOTE | 2016-08-01 13:09 | NUR ---
Blood sugar rechecked, result in 71. 1 low fat milk given for patient to drink over time, reports relief in symptoms. No other needs verbalized at this time. Asymptomatic at this time. Safety precautions maintained, call light within reach.
[2016-08-01 15:53] VITALS: BP 108/67
--- NOTE | 2016-08-01 18:35 | NUR ---
Amaryl and Metformin held for patient due to decreased blood glucose level, at 76. Patient refused to take due to not eating enough. Patient refused to have more food, instead preferring for family to bring food for him. Family observed at bedside, who just brought more food for patient. Will endorse to shift supervisor. No other signs of distress noted at this time.
--- NOTE | 2016-08-01 20:00 | NUR ---
PATIENT AWAKE IN BED WITH FAMILY AT BEDSIDE. PATIENT IS A/O X4. DENIES PAIN OR DISCOMFORT. NO RESP. DISTRESS NOTED. CALL LIGHT IN REACH. ALL NEEDS ATTENDED. WILL CONTINUE TO MONITOR AND ASSESS.
[2016-08-01 20:04] VITALS: BP 114/79
[2016-08-01] MEDS: ATORVASTATIN 40 MG TABLET PO SCH (20:36)
[2016-08-02] MEDS: PANTOPRAZOLE SODIUM 40 MG TABLET.DR PO SCH (06:22)
[2016-08-02] MEDS: BLOOD SUGAR DIAGNOSTIC 1 EACH STRIP VI SCH ×4 (06:22→21:06)
--- NOTE | 2016-08-02 06:27 | NUR ---
PATIENT AWAKE IN BED ON PHONE. BLOOD SUGAR TAKEN- 98. PATIENT DENIES PAIN OR DISCOMFORT. NO RESP. DISTRESS NOTED. SLEPT WELL THROUGHOUT THE NIGHT. CALL LIGHT IN REACH. ALL NEEDS ATTENDED. WILL CONTINUE TO MONITOR.
--- NOTE | 2016-08-02 06:47 | NUR ---
PATIENT PROVIDED TEACHING REGARDING DIABETES AND FOOD INTAKE. VERBALIZED UNDERSTANDING. PATIENT GIVEN COPY. PLACED AT BEDSIDE. ALL NEEDS ATTENDED, WILL CONTINUE TO MONITOR.
[2016-08-02] MEDS: GLIMEPIRIDE 4 MG TABLET PO SCH ×2 (08:00→17:16)
[2016-08-02] MEDS: METFORMIN HCL 500 MG TABLET PO SCH ×2 (08:00→17:16)
[2016-08-02 08:20] VITALS: BP 122/83
[2016-08-02] MEDS: OMEGA-3 FATTY ACIDS/FISH OIL CAPSULE PO SCH (08:53)
[2016-08-02] MEDS: CLOPIDOGREL 75 MG TABLET PO SCH (08:53)
[2016-08-02] MEDS: PATIENT MAY USE OWN MED- MD OK PO SCH (08:53)
[2016-08-02] MEDS: ASPIRIN 81 MG TAB.CHEW PO SCH (08:53)
[2016-08-02] MEDS: LOSARTAN POTASSIUM 50 MG TABLET PO SCH (08:54)
[2016-08-02] MEDS: AMLODIPINE 5 MG TABLET PO SCH (08:55)
--- NOTE | 2016-08-02 09:01 | NUR ---
pt refused blood pressure and blood sugar meds. sugar 98 bp 122/83. will continue to reassess pt.
[2016-08-02] MEDS: INSULIN REGULAR, HUMAN 300 UNIT/3 ML VIAL SQ PRN (12:20)
--- NOTE | 2016-08-02 19:00 | NUR ---
pt seen eathing food from home. blood glucose checked in am. 158. provided 3 units and refused po blood glucose meds because previous glucose was at 98. pt shows dissatisfaction with too much medications. pt checked hs blood glucose. 330. provided both blood sugar meds at night. vital signs stable. maintained loc throughout the night. recommended to eat a snack to prevent hypoglycemia.
--- NOTE | 2016-08-02 19:15 | NUR ---
Received report from day shift nurse. Received patient in bed. Alert and verbally responsive. Able to make needs known. Denies any pain and discomfort at this time. No acute distress. No SOB noted. Family at bedside. Kept clean and dry. All needs attended to promptly. Call light within reach. Will continue to monitor.
[2016-08-02 20:33] VITALS: BP 132/88
[2016-08-02] MEDS: ATORVASTATIN 40 MG TABLET PO SCH (21:01)
[2016-08-02] MEDS: INSULIN REGULAR, HUMAN 300 UNITS/3 ML VIAL SQ PRN (21:10)
[2016-08-03] MEDS: PANTOPRAZOLE SODIUM 40 MG TABLET.DR PO SCH (06:42)
[2016-08-03] MEDS: BLOOD SUGAR DIAGNOSTIC 1 EACH STRIP VI SCH ×4 (06:44→20:17)
--- NOTE | 2016-08-03 06:54 | NUR ---
Patient slept well throughout the night. No c/o pain and discomfort. No acute distress. No SOB. Kept clean and dry. All needs attended to promptly. Call light within reach. Will continue to monitor. Addendum: 08/03/16 at 0657 by LALIT HUERTA RN Blood sugar is 315 this AM. Will endorse to AM shift
--- NOTE | 2016-08-03 07:10 | NUR ---
Received report form morning shift. Safety check, bed in locked/low position, side rails up x2.
[2016-08-03 08:00] VITALS: BP 121/79
[2016-08-03] MEDS: LOSARTAN POTASSIUM 50 MG TABLET PO SCH (08:51)
[2016-08-03] MEDS: AMLODIPINE 5 MG TABLET PO SCH (08:51)
[2016-08-03] MEDS: GLIMEPIRIDE 4 MG TABLET PO SCH ×3 (08:51→20:20)
[2016-08-03] MEDS: ASPIRIN 81 MG TAB.CHEW PO SCH (08:51)
[2016-08-03] MEDS: CLOPIDOGREL 75 MG TABLET PO SCH (08:51)
[2016-08-03] MEDS: METFORMIN HCL 500 MG TABLET PO SCH ×3 (08:52→20:20)
[2016-08-03] MEDS: OMEGA-3 FATTY ACIDS/FISH OIL CAPSULE PO SCH (08:52)
[2016-08-03] MEDS: PATIENT MAY USE OWN MED- MD OK PO SCH (08:53)
[2016-08-03] MEDS: INSULIN REGULAR, HUMAN 300 UNIT/3 ML VIAL SQ PRN ×3 (09:39→20:27)
--- NOTE | 2016-08-03 12:00 | NUR ---
Patient refusing to each breakfast or lunch, but continues to snack on small items in the room.
--- NOTE | 2016-08-03 19:03 | NUR ---
PATIENT HAS NOT EATEN ANY OF HIS MEALS TODAY, BUT HAS HAD INFREQUENT SNACKS SUCH JELLO. NIGHT TIME AMARYL AND METFORMIN HELD DUE TO DECLINING BLOOD SUGAR AND NO MEALS. PATIENT HAS BEEN SLEEPING MOST OF THE DAY, AND IRRITABLE, BUT DENIES ANY PAIN OR DISCOMFORT.
--- NOTE | 2016-08-03 19:30 | NUR ---
RECEIVED PATIENT RESTING IN BED WITHOUT COMPLAINTS OF PAIN. VERBALIZES SADNESS WITH RECENT OF A RELATIVE. SUPPORT GIVEN, ALLOWED TO VENT. FOR PSYCH EVAL IN THE MORNING. PT REFUSES TO PUT ON SCDs. CALL LIGHT IN REACH, INSTRUCTED PATIENT TO CALL RN WHEN ASSISTANCE IS NEEDED, BED ALARM ON. PATIENT REQUESTS TO BE LEFT ALONE, HOWEVER, ROUNDING WILL BE DONE EVERY HOUR AND PRN.
[2016-08-03 20:00] VITALS: BP 123/81
[2016-08-03] MEDS: ATORVASTATIN 40 MG TABLET PO SCH (20:17)
--- NOTE | 2016-08-03 20:20 | NUR ---
ACCUCHECK IS 140. PATIENT HAS POOR APPETITE EVEN WITH FAMILY FOOD GIVEN. 1800 AMARYL AND GLUCOPHAGE GIVEN BUT HELD HS INSULIN COVERAGE. BOTH HYPOGLYCEMIC MEDICATIONS WITNESSED BY TRANSITION TEACHER SHANELLE DANIELLE. INSTRUCTED PATIENT TO CALL RN IF EXPERIENCES SIGNS OF HYPOGLYCEMIA, PATIENT VERBALIZES UNDERSTANDING. CALL LIGHT WITHIN REACH AAT.
--- NOTE | 2016-08-04 06:00 | NUR ---
slept fairly well tonight. appears depressed, not wanting to talk or engage much with the staff. stated he just wanted to be left alone. support given. hourly rounding done to ensure patient safety and comfort. appears in nad at this time. no c/o pain. plan is for psych eval today. patient is experiencing a recent in the family that he states is making him sad. call light within reach
[2016-08-04] MEDS: PANTOPRAZOLE SODIUM 40 MG TABLET.DR PO SCH (06:49)
[2016-08-04] MEDS: BLOOD SUGAR DIAGNOSTIC 1 EACH STRIP VI SCH ×4 (06:54→21:12)
[2016-08-04 08:00] VITALS: BP 121/90
[2016-08-04] MEDS: OMEGA-3 FATTY ACIDS/FISH OIL CAPSULE PO SCH (08:47)
[2016-08-04] MEDS: GLIMEPIRIDE 4 MG TABLET PO SCH ×2 (08:47→18:00)
[2016-08-04] MEDS: AMLODIPINE 5 MG TABLET PO SCH (08:47)
[2016-08-04] MEDS: METFORMIN HCL 500 MG TABLET PO SCH ×2 (08:47→18:00)
[2016-08-04] MEDS: CLOPIDOGREL 75 MG TABLET PO SCH (08:47)
[2016-08-04] MEDS: ASPIRIN 81 MG TAB.CHEW PO SCH (08:47)
[2016-08-04] MEDS: PATIENT MAY USE OWN MED- MD OK PO SCH (08:48)
[2016-08-04] MEDS: LOSARTAN POTASSIUM 50 MG TABLET PO SCH (08:48)
--- NOTE | 2016-08-04 08:50 | NUR ---
Holding off on insulin due to patient poor intake. Patient ate 50% or less and wishes to take Metformin and Amaryl only. Will reassess before lunch.
[2016-08-04] MEDS: INSULIN REGULAR, HUMAN 300 UNIT/3 ML VIAL SQ PRN ×2 (12:57→17:02)
--- NOTE | 2016-08-04 17:01 | NUR ---
HOLDING INSULIN AT THIS TIME. PATIENT REFUSES TO EAT. SLEEPING AT THIS TIME.
--- NOTE | 2016-08-04 18:24 | NUR ---
HELD HYPOGLYCEMICS HELD. PATIENT DID NOT EAT DINNER.
--- NOTE | 2016-08-04 19:30 | NUR ---
received patient in nad. continues to be down regarding recent in the family. support given. to have psych consult. c/o lbp. medicated with norco with adequate relief. still with poor appetite. enc to at least drink fluids. no c/o n/v. call light within reach aat.
[2016-08-04 20:55] VITALS: BP 112/70
[2016-08-04] MEDS: ATORVASTATIN 40 MG TABLET PO SCH (21:08)
[2016-08-04] MEDS: INSULIN REGULAR, HUMAN 300 UNITS/3 ML VIAL SQ PRN (21:17)
--- NOTE | 2016-08-05 06:00 | NUR ---
slept only fair last night. communicating with people on his cell, and watching tv on and off. wants to be left alone and states he does not need anything. no c/o pain this morning.appears comfortable. in nad.call light within reach. safety and comfort needs tended to
[2016-08-05] MEDS: PANTOPRAZOLE SODIUM 40 MG TABLET.DR PO SCH (06:32)
[2016-08-05] MEDS: BLOOD SUGAR DIAGNOSTIC 1 EACH STRIP VI SCH ×4 (06:36→20:35)
--- NOTE | 2016-08-05 07:15 | NUR ---
Report received from Baylee LATIF. Patient 61 yr old male was admitted on 07/22. Patient is full code. Addendum: 08/05/16 at 1024 by MAHENDRA SANCHEZ RN Amended: Links added.
[2016-08-05 08:00] VITALS: BP 134/92
--- NOTE | 2016-08-05 09:15 | NUR ---
Patient ambulated with OT. Jeff back to room. refused morning medications. Waiting for to bring food then he will take am meds. Addendum: 08/05/16 at 0915 by MAHENDRA SANCHEZ RN Amended: Links added.
[2016-08-05] MEDS: GLIMEPIRIDE 4 MG TABLET PO SCH ×2 (11:18→16:41)
[2016-08-05] MEDS: OMEGA-3 FATTY ACIDS/FISH OIL CAPSULE PO SCH (11:18)
[2016-08-05] MEDS: METFORMIN HCL 500 MG TABLET PO SCH ×2 (11:18→16:41)
[2016-08-05] MEDS: ASPIRIN 81 MG TAB.CHEW PO SCH (11:19)
[2016-08-05] MEDS: AMLODIPINE 5 MG TABLET PO SCH (11:19)
[2016-08-05] MEDS: LOSARTAN POTASSIUM 50 MG TABLET PO SCH (11:19)
[2016-08-05] MEDS: CLOPIDOGREL 75 MG TABLET PO SCH (11:19)
[2016-08-05] MEDS: PATIENT MAY USE OWN MED- MD OK PO SCH (11:22)
[2016-08-05] MEDS: INSULIN REGULAR, HUMAN 300 UNIT/3 ML VIAL SQ PRN ×2 (12:40→16:34)
--- NOTE | 2016-08-05 12:42 | NUR ---
anat 171, covered with 3 units humulin R SQ Addendum: 08/05/16 at 1242 by MAHENDRA SANCHEZ RN Amended: Links added.
--- NOTE | 2016-08-05 16:47 | NUR ---
JONG 142, covered with 2 units humulin R SQ Addendum: 08/05/16 at 1647 by MAHENDRA SANCHEZ RN Amended: Links added. Addendum: 08/05/16 at 1648 by MAHENDRA SANCHEZ RN Amended: Links added.
--- NOTE | 2016-08-05 19:30 | NUR ---
Report received from day shift. Received patient in bed. at bedside. Alert and verbally responsive. Able to make needs known. Denies any pain or discomfort. No acute distress. No SOB. On room air. All needs attended to promptly. Call light within reach. Will continue to monitor.
[2016-08-05] MEDS: ATORVASTATIN 40 MG TABLET PO SCH (20:32)
--- NOTE | 2016-08-05 20:35 | NUR ---
Accucheck done. Blood sugar 73. at bedside while patient eating dinner from home. aware of BS. Encouraged to eat snacks. OJ given. Patient in no acute distress. No s/s of hypoglycemic at this time. All needs attended to promptly. Call light within reach. Will continue to monitor.
[2016-08-06] MEDS: PANTOPRAZOLE SODIUM 40 MG TABLET.DR PO SCH (06:36)
[2016-08-06] MEDS: BLOOD SUGAR DIAGNOSTIC 1 EACH STRIP VI SCH ×4 (06:37→21:48)
--- NOTE | 2016-08-06 06:45 | NUR ---
Patient is awake and verbally responsive. Able to make needs known. Denies any pain and discomfort at this time. No acute distress. No SOB. Accucheck done with BS of 130. No insulin coverage needed. No s/s of hypo/hyperglycemia. Ambulates to bathroom. Kept clean and dry. All needs attended to promptly. Call light within reach. Will continue to monitor.
[2016-08-06] MEDS: METFORMIN HCL 500 MG TABLET PO SCH ×3 (08:00→17:25)
[2016-08-06] MEDS: GLIMEPIRIDE 4 MG TABLET PO SCH ×3 (08:00→17:25)
[2016-08-06 08:27] VITALS: BP 112/68
[2016-08-06] MEDS: ASPIRIN 81 MG TAB.CHEW PO SCH ×2 (09:00→11:53)
[2016-08-06] MEDS: PATIENT MAY USE OWN MED- MD OK PO SCH ×2 (09:00→11:56)
[2016-08-06] MEDS: AMLODIPINE 5 MG TABLET PO SCH ×2 (09:00→11:55)
[2016-08-06] MEDS: LOSARTAN POTASSIUM 50 MG TABLET PO SCH ×2 (09:00→11:55)
[2016-08-06] MEDS: CLOPIDOGREL 75 MG TABLET PO SCH ×2 (09:00→11:54)
[2016-08-06] MEDS: OMEGA-3 FATTY ACIDS/FISH OIL CAPSULE PO SCH ×2 (09:00→11:54)
[2016-08-06] MEDS: INSULIN REGULAR, HUMAN 300 UNITS/3 ML VIAL SQ PRN (11:58)
--- NOTE | 2016-08-06 16:19 | NUR ---
IDT MEETING 08/06/16
--- NOTE | 2016-08-06 19:30 | NUR ---
Received report from BHAVYA Chambers. Received patient in bed. Family at bedside. Denies any pain and discomfort. No acute distress. No SOB. Kept clean and dry. All needs attended to promptly. Call light within reach. Will continue to monitor.
[2016-08-06] MEDS: ATORVASTATIN 40 MG TABLET PO SCH (21:47)
[2016-08-06 22:06] VITALS: BP 116/68
[2016-08-07] MEDS: PANTOPRAZOLE SODIUM 40 MG TABLET.DR PO SCH (06:48)
[2016-08-07] MEDS: BLOOD SUGAR DIAGNOSTIC 1 EACH STRIP VI SCH ×2 (06:51→07:21)
--- NOTE | 2016-08-07 06:55 | NUR ---
Patient is awake, oriented and verbally responsive. Slept comfortably throughout the night. Accu check done with BS of 59. [place] juice given. Will re-check blood sugar. No s/s of hypoglycemic at this time. No acute distress. Patient is alert and able to make needs known. All needs attended to promptly. Call light within reach. Will continue to monitor.
--- NOTE | 2016-08-07 07:24 | NUR ---
Re-assessed accu-check with BS of 71. Patient is awake, alert and verbally responsive. No s/s of hypoglycemia. Encouraged to drink OJ and follow strict carb diet. Verbalizes that he doesn't like the food here. Encouraged him to eat his breakfast and explained to him that he is on a Carbohydrate diet. Verbally understands. Asked for fruit up. Called the kitchen and spoke to Orxie, she says they will bring it up. All needs attended to promptly. Call light within reach. Will continue to monitor. Will endorse to day shift.
[2016-08-07] MEDS: METFORMIN HCL 500 MG TABLET PO SCH (08:00)
[2016-08-07] MEDS: GLIMEPIRIDE 4 MG TABLET PO SCH (08:00)
[2016-08-07 08:07] VITALS: BP 110/66
[2016-08-07] MEDS: ERGOCALCIFEROL 50,000 UNIT CAPSULE PO SCH (08:56)
[2016-08-07] MEDS: CLOPIDOGREL 75 MG TABLET PO SCH (08:56)
[2016-08-07] MEDS: OMEGA-3 FATTY ACIDS/FISH OIL CAPSULE PO SCH (08:57)
[2016-08-07] MEDS: ASPIRIN 81 MG TAB.CHEW PO SCH (08:57)
[2016-08-07] MEDS: PATIENT MAY USE OWN MED- MD OK PO SCH (08:59)
[2016-08-07 09:00] VITALS: BP 110/64
[2016-08-07] MEDS: AMLODIPINE 5 MG TABLET PO SCH (09:00)
[2016-08-07] MEDS: LOSARTAN POTASSIUM 50 MG TABLET PO SCH (09:00)
--- NOTE | 2016-08-07 10:14 | NUR ---
pt refused amaryl and metformin because he thought blood sugar was too low at 71. pt provided risks about not taking medication. pt refused. will continue to monitor for hyperglycemia
--- NOTE | 2016-08-07 14:12 | NUR ---
pt discharged at 1300 with family . pt vital stable. no signs of acute distress. no complications during discharge. pt provided instructions on prescriptions and follow up with pcp. pt provided original copy of discharge instructions. pt provided education with stroke diet smoking cessation and safety precautions. dr Johnson provided discharge meds. pt verbalizes understanding of medications and discharge instructions. pt provided a walker and a cane. pt. used wheelchair for discharge.
== END 2016-08-07 13:00 | disposition home health service (06) | DRG 65 ==
PROVIDERS: ADMIT Physical Medicine & Rehabilitation Pain Medicine; ATTEND Physical Medicine & Rehabilitation Pain Medicine
DX: I63.9 Cerebral infarction, unspecified (principal); G32.81 Cerebellar ataxia in diseases classified elsewhere; C79.31 Secondary malignant neoplasm of brain; Z85.118 Personal history of other malignant neoplasm of bronchus and lung; I10 Essential (primary) hypertension; Z82.49 Family history of ischemic heart disease and other diseases of the circulatory system; Z92.3 Personal history of irradiation; E11.65 Type 2 diabetes mellitus with hyperglycemia; Z68.30 Body mass index [BMI] 30.0-30.9, adult; E66.9 Obesity, unspecified; E78.5 Hyperlipidemia, unspecified; E55.9 Vitamin D deficiency, unspecified; G93.89 Other specified disorders of brain; I95.9 Hypotension, unspecified; J32.0 Chronic maxillary sinusitis; M65.341 Trigger finger, right ring finger; F32.9 Major depressive disorder, single episode, unspecified; R79.89 Other specified abnormal findings of blood chemistry
CPT/HCPCS: 36415; 70030-TC; 83735; 84100; 84443; 85025; 92523; 97110; 97112; 97116; 97161; 97165; 97530; 97535; A4663; J1815; J3475

== ENCOUNTER 2019-04-01 20:29 | Inpatient (IN) | payer MEDICARE, OTHER ==
[~2019-04-01] VITALS: Ht 177.8 cm; Wt 103.9 kg
[~2019-04-01 20:29] MED LIST changes: -AMLO5TAB2 PO; +AMLO5TAB9 PO; +CLOP75TA15 PO; -CLOP75TA2 PO; +ERGO500014 PO; -ERGO500047 PO; -GLIM4TAB3 PO; +GLIM4TAB37 PO; -LOSA100T15 PO; +LOSA100T31 PO; +METF-442 PO; -METF10002 PO; -ROSU20TA PO; +ROSU20TA2 PO
--- NOTE | 2019-04-01 21:13 | NUR ---
Dr. Curran at bedside for MSE.
--- NOTE | 2019-04-01 21:14 | NUR ---
Nursing Document Preparer Microfilming at bedside.
--- NOTE | 2019-04-01 21:16 | NUR ---
Bomb Loader at bedside.
--- NOTE | 2019-04-01 21:25 | NUR ---
Pt out of ER for CT.
[2019-04-01 21:29] LABS: BASOPHILS % (AUTO) 0.6 % (0.0-2.0); EOSINOPHILS # (AUTO) 0.1 K/uL (0.0-0.7); EOSINOPHILS % (AUTO) 0.9 % (0.0-7.0); HEMATOCRIT 45.9 % (36.7-47.1); HEMOGLOBIN 15.6 g/dL (12.5-16.3); LYMPHOCYTES # (AUTO) 2.1 K/uL (20.0-40.0); LYMPHOCYTES % (AUTO) 28.2 % (20.5-51.5); MEAN CORPUSCULAR HEMOGLOBIN 28.9 uug (23.8-33.4); MEAN CORPUSCULAR HGB CONC 34 g/dL (32.5-36.3); MONOCYTES # (AUTO) 0.6 K/uL (2.0-10.0); MONOCYTES % (AUTO) 8.2 % (0.0-11.0); NEUTROPHILS # (AUTO) 4.6 K/uL (1.8-8.9); NEUTROPHILS % (AUTO) 62.1 % (38.5-71.5); PLATELET COUNT (AUTO) 252 K/uL (152-348); RED BLOOD CELL COUNT(AUTO) 5.39 MIL/uL (4.06-5.63); WHITE BLOOD COUNT (AUTO) 7.5 K/uL (3.6-10.2)
--- NOTE | 2019-04-01 21:33 | NUR ---
Xray done in radiology.
[2019-04-01 21:36] LABS: CREATININE 1.3 mg/dL (0.6-1.3); POTASSIUM 3.8 mmol/L (3.5-5.1)
--- NOTE | 2019-04-01 21:37 | NUR ---
Pt back to ER from CT.
--- NOTE | 2019-04-01 21:40 | NUR ---
Telemed robot at bedside, website for neurology consult results in error [phone], called Telemed technical support for assistance.
[2019-04-01 21:47] LABS: BILIRUBIN,DIRECT 0.1 mg/dL (0.0-0.2); BILIRUBIN,TOTAL 0.4 mg/dL (0.2-1.0); TOTAL PROTEIN, SERUM 7.8 g/dL (6.4-8.2)
--- NOTE | 2019-04-01 21:50 | NUR ---
Patient passed swallow eval.
--- NOTE | 2019-04-01 21:57 | NUR ---
Dr. Curran speaking with Dr. Crispin Deras for neurology consult.
--- NOTE | 2019-04-01 22:04 | NUR ---
Called [facility] to page Dr. Long.
--- NOTE | 2019-04-01 22:28 | NUR ---
Dr. Curran on panel call with Dr. Long. Patient accepted for admission to [facility], diagnosis: CVA.
--- NOTE | 2019-04-01 22:38 | NUR ---
Report given to Nasreen LATIF Tele.
[2019-04-01] MEDS ORDERED: Z GUARD REMEDY PASTE 57 GM TUBE TOP PRN (23:00)
[2019-04-01] MEDS ORDERED: DEXTROSE 50% 50 ML DISP.SYRIN IV PRN (23:00)
[2019-04-01] MEDS ORDERED: HYDROCODONE/APAP 5-325MG TABLET PO PRN (23:00)
[2019-04-01] MEDS ORDERED: ACETAMINOPHEN 325 MG TABLET PO PRN (23:00)
[2019-04-01] MEDS ORDERED: MAGNESIUM HYDROXIDE 30 ML LIQUID UDC PO PRN (23:00)
[2019-04-01 23:06] VITALS: BP 162/105
[2019-04-02] VITALS: BP 124/68
[2019-04-02] MEDS: ZOLPIDEM 5 MG TABLET PO PRN ×2 (00:41→23:08)
[2019-04-02 00:47] LABS: THYROID STIMULATING HORMONE 1.168 mIU/mL (0.358-3.740)
[2019-04-02 01:11] VITALS: BP 154/88
--- NOTE | 2019-04-02 05:21 | NUR ---
TEXTED DR. ARNOLD FOR MRI APPROVAL.
[2019-04-02 05:55] VITALS: BP 147/87
[2019-04-02 06:26] LABS: BASOPHILS % (AUTO) 0.5 % (0.0-2.0); EOSINOPHILS # (AUTO) 0.1 K/uL (0.0-0.7); EOSINOPHILS % (AUTO) 1.3 % (0.0-7.0); HEMATOCRIT 42.7 % (36.7-47.1); HEMOGLOBIN 14.7 g/dL (12.5-16.3); LYMPHOCYTES # (AUTO) 2.1 K/uL (20.0-40.0); LYMPHOCYTES % (AUTO) 28.2 % (20.5-51.5); MEAN CORPUSCULAR HEMOGLOBIN 28.9 uug (23.8-33.4); MEAN CORPUSCULAR HGB CONC 34 g/dL (32.5-36.3); MEAN CORPUSCULAR VOLUME 84.2 fL (73.0-96.2); MONOCYTES # (AUTO) 0.6 K/uL (2.0-10.0); MONOCYTES % (AUTO) 7.9 % (0.0-11.0); NEUTROPHILS # (AUTO) 4.6 K/uL (1.8-8.9); NEUTROPHILS % (AUTO) 62.1 % (38.5-71.5); PLATELET COUNT (AUTO) 241 K/uL (152-348); RED BLOOD CELL COUNT(AUTO) 5.08 MIL/uL (4.06-5.63); WHITE BLOOD COUNT (AUTO) 7.5 K/uL (3.6-10.2)
[2019-04-02] MEDS: BLOOD SUGAR DIAGNOSTIC 1 EACH STRIP VI SCH ×4 (06:33→21:19)
[2019-04-02 06:42] LABS: CREATININE 1.3 mg/dL (0.6-1.3); MAGNESIUM 1.5 mg/dL (1.8-2.4); PHOSPHOROUS 3.9 mg/dL (2.5-4.9); POTASSIUM 3.5 mmol/L (3.5-5.1)
--- NOTE | 2019-04-02 06:50 | NUR ---
patient received in bed with family at bedside. no s/s of acute distress and v/s stable at this throughout shift. safety and comfort measures provided. bed in lowest position, side rails up x2, bed in lowest position. will continue plan of care and endorse accordingly.
--- NOTE | 2019-04-02 07:30 | NUR ---
Patient calm and comfortable with no signs of distress; patient continue to monitored.
[2019-04-02] MEDS: GLIMEPIRIDE 4 MG TABLET PO SCH ×2 (09:06→17:46)
[2019-04-02] MEDS: LOSARTAN POTASSIUM 50 MG TABLET PO SCH (09:08)
[2019-04-02] MEDS: AMLODIPINE 5 MG TABLET PO SCH (09:09)
[2019-04-02] MEDS: ASPIRIN EC 81 MG TABLET.DR PO SCH (09:09)
[2019-04-02] MEDS: METFORMIN HCL 500 MG TABLET PO SCH ×2 (09:10→17:46)
[2019-04-02 11:25] VITALS: BP 142/93
--- NOTE | 2019-04-02 11:30 | NUR ---
patient left for MRI in stable condition with all consents signed; patient left via ambulance.
[2019-04-02] MEDS ORDERED: GADOTERIDOL 279.3 MG/ML, 15 ML VIAL IV ONE (12:05)
[2019-04-02 12:23] LABS: *BILIRUBIN,URIN NEGATIVE (NEGATIVE); *CLARITY,URINE CLEAR (CLEAR); *COLOR,URINE YELLOW (YELLOW); *KETONES,URINE NEGATIVE (NEGATIVE); *UROBILINOGEN,URINE 0.2 E.U./dl (NORMAL); LEUKOCYTE ESTERASE ,URINE NEGATIVE (NEGATIVE); NITRITE, URINE NEGATIVE (NEGATIVE); PH,URINE 6.5 (5.0-8.0); UGLUCOSE NEGATIVE (NEGATIVE)
[2019-04-02 12:30] LABS: *BLOOD, URINE NEGATIVE (NEGATIVE)
[2019-04-02 12:36] LABS: BACTERIA,URINE MODERATE /HPF (NONE SEEN); SQUAMOUS EPITHELIAL CELL,UR FEW /HPF (NONE SEEN)
[2019-04-02 12:37] LABS: URINE AMORPHOUS URATE MODERATE /HPF
--- NOTE | 2019-04-02 13:00 | NUR ---
Patient returend from mri in stable conditon; patient will continue to be monitored.
[2019-04-02] MEDS: MAGNESIUM SULFATE/D5W 100 ML IV SCH ×2 (13:29→14:53)
[2019-04-02 15:20] VITALS: BP 139/85
[2019-04-02] MEDS: ONDANSETRON 4 MG/2 ML VIAL IV PRN ×2 (16:56→23:07)
--- NOTE | 2019-04-02 18:48 | NUR ---
Patient calm and comfortable through out shift with no signs of distress;patient x1 with episode of nausea ; prn Zofran given ; Patient calm and comfortable with family at bedside; patient will continue to be monitored.
[2019-04-02 20:00] VITALS: BP 153/96
[2019-04-02] MEDS ORDERED: ATORVASTATIN 40 MG TABLET PO SCH (21:00)
[2019-04-03 06:31] VITALS: BP 132/81
[2019-04-03 06:46] LABS: BASOPHILS % (AUTO) 0.5 % (0.0-2.0); EOSINOPHILS # (AUTO) 0.1 K/uL (0.0-0.7); EOSINOPHILS % (AUTO) 1.4 % (0.0-7.0); HEMATOCRIT 42.6 % (36.7-47.1); HEMOGLOBIN 14.3 g/dL (12.5-16.3); LYMPHOCYTES # (AUTO) 1.8 K/uL (20.0-40.0); MEAN CORPUSCULAR HEMOGLOBIN 28.7 uug (23.8-33.4); MEAN CORPUSCULAR HGB CONC 34 g/dL (32.5-36.3); MEAN CORPUSCULAR VOLUME 85.1 fL (73.0-96.2); MONOCYTES # (AUTO) 0.6 K/uL (2.0-10.0); MONOCYTES % (AUTO) 8.7 % (0.0-11.0); NEUTROPHILS # (AUTO) 4.6 K/uL (1.8-8.9); NEUTROPHILS % (AUTO) 64.4 % (38.5-71.5); PLATELET COUNT (AUTO) 233 K/uL (152-348); RED BLOOD CELL COUNT(AUTO) 5.01 MIL/uL (4.06-5.63); WHITE BLOOD COUNT (AUTO) 7.2 K/uL (3.6-10.2)
[2019-04-03 07:18] LABS: CREATININE 1.4 mg/dL (0.6-1.3); MAGNESIUM 1.8 mg/dL (1.8-2.4)
--- NOTE | 2019-04-03 07:43 | NUR ---
RECEIVED PATIENT IN BED AWAKE ALERT AND ORIENTED INSTRUCTED TO CALL THE NURSE IF NEEDED AND HE EXPRESSED UNDERSTANDING CALL LIGHTS AND PERSONAL BELONGINGS ARE WITHIN EASY REACH MADE COMFORTABLE AND WILL CONTINUE TO OBSERVE
[2019-04-03] MEDS: BLOOD SUGAR DIAGNOSTIC 1 EACH STRIP VI SCH ×2 (07:55→11:15)
[2019-04-03] MEDS: GLIMEPIRIDE 4 MG TABLET PO SCH (08:21)
[2019-04-03] MEDS: ASPIRIN EC 81 MG TABLET.DR PO SCH (08:21)
[2019-04-03] MEDS: METFORMIN HCL 500 MG TABLET PO SCH (08:21)
[2019-04-03] MEDS: LOSARTAN POTASSIUM 50 MG TABLET PO SCH (08:25)
[2019-04-03] MEDS: AMLODIPINE 5 MG TABLET PO SCH (08:26)
--- NOTE | 2019-04-03 09:30 | NUR ---
PATIENT SEEN AND EXAMINED BY DR THURSTON WITH ORDER TO DISCHARGE HOME TODAY PATIENT AWARE AND STATED THAT HIS REGINALD WILL BE HERE TO PICK HIM UP.
[2019-04-03 11:52] VITALS: BP 145/96
--- NOTE | 2019-04-03 12:06 | NUR ---
PATIENT DISCHARGED PICKED UP BY HIS YECENIA IN SATISFACTORY CONDITION WITH DISCHARGE INSTRUCTIONS D/C SUMMARY PRINTED AND GIVEN TO PATIENT HE WAS INSTRUCTED TO CALL FOR A FOLLOW UP APPOINTMENT WITH HIS PRIMARY DOCTOR AND A NEUROLOGIST WITHIN THE NEXT ONE WEEK AND HE EXPRESSED UNDERSTANDING.
--- NOTE | 2019-04-04 10:02 | NUR ---
This mental health social worker received a Product Responsibility Liaison consultation this morning, which was requested by Dr. Long on Thursday04/01/2019 at 11pm at night. This SW met with Dr. Long this morning, who informed this SW that patient was discharged home yesterday, 04/03/2019. SS consultation unable to be completed at this time.
== END 2019-04-03 12:06 | disposition home health service (06) | DRG 57 ==
LOC: ER 20:30 → TELE3 22:39 → MEDSURG3 04-02 09:35
PROVIDERS: ADMIT Family Medicine; ATTEND Family Medicine
DX: I69.393 Ataxia following cerebral infarction (principal); E11.65 Type 2 diabetes mellitus with hyperglycemia; G93.89 Other specified disorders of brain; E78.5 Hyperlipidemia, unspecified; I67.2 Cerebral atherosclerosis; I10 Essential (primary) hypertension; Z87.891 Personal history of nicotine dependence; Z85.118 Personal history of other malignant neoplasm of bronchus and lung; Z85.841 Personal history of malignant neoplasm of brain; Z79.82 Long term (current) use of aspirin; Z92.3 Personal history of irradiation; Z90.2 Acquired absence of lung [part of]; Z80.51 Family history of malignant neoplasm of kidney; Z82.3 Family history of stroke; Z90.5 Acquired absence of kidney; Z79.84 Long term (current) use of oral hypoglycemic drugs
CPT/HCPCS: 36415; 70030-TC; 70450; 70553; 71045; 83735; 84100; 84443; 85025; 85651; 85730; 87077; 87086; 93005; A4663; A9579; G0378; J2405; J3475; J7050

== ENCOUNTER 2019-04-13 23:16 | Emergency (ER) | payer MEDICARE, OTHER ==
[~2019-04-13] VITALS: Ht 175.3 cm; Wt 99.8 kg
[2019-04-13] MEDS ORDERED: DEXTROSE 50% 50 ML DISP.SYRIN ONE (23:39)
[2019-04-13 23:44] LABS: BASOPHILS # (AUTO) 0.1 K/uL (0.0-8.0); BASOPHILS % (AUTO) 0.7 % (0.0-2.0); EOSINOPHILS # (AUTO) 0.1 K/uL (0.0-0.7); EOSINOPHILS % (AUTO) 0.8 % (0.0-7.0); HEMATOCRIT 46.6 % (36.7-47.1); HEMOGLOBIN 15.6 g/dL (12.5-16.3); LYMPHOCYTES # (AUTO) 4.2 K/uL (20.0-40.0); LYMPHOCYTES % (AUTO) 33.9 % (20.5-51.5); MEAN CORPUSCULAR HEMOGLOBIN 28.8 uug (23.8-33.4); MEAN CORPUSCULAR HGB CONC 34 g/dL (32.5-36.3); MEAN CORPUSCULAR VOLUME 86.1 fL (73.0-96.2); MONOCYTES # (AUTO) 0.9 K/uL (2.0-10.0); MONOCYTES % (AUTO) 7.1 % (0.0-11.0); NEUTROPHILS # (AUTO) 7.2 K/uL (1.8-8.9); NEUTROPHILS % (AUTO) 57.5 % (38.5-71.5); PLATELET COUNT (AUTO) 265 K/uL (152-348); RED BLOOD CELL COUNT(AUTO) 5.41 MIL/uL (4.06-5.63); WHITE BLOOD COUNT (AUTO) 12.5 K/uL (3.6-10.2)
[2019-04-13] MEDS ORDERED: DEXTROSE 50% 50 ML DISP.SYRIN IV ONE (23:45)
--- NOTE | 2019-04-14 | NUR ---
Pt bib and ambulated in ER with walker for c/o intermittent hypoglycemia for the past couple of days. PT has hx of DM and is taking oral meds. Pt also c/o weakness.
[2019-04-14 00:24] LABS: CREATININE 1.3 mg/dL (0.6-1.3); POTASSIUM 4.8 mmol/L (3.5-5.1)
[2019-04-14 00:30] LABS: BILIRUBIN,TOTAL 0.3 mg/dL (0.2-1.0); TOTAL PROTEIN, SERUM 8.2 g/dL (6.4-8.2)
[2019-04-14 01:17] VITALS: BP 137/76
--- NOTE | 2019-04-14 01:17 | NUR ---
IV removed, catheter intact, pressure applied. Patient discharged to home in stable conditon. Written and verbal after care instructions given. Patient verbalizes understanding of instructions. Patient discharged with . No acute distress.
== END 2019-04-14 01:19 | disposition home or self-care (01) ==
LOC: ER 23:16
DX: E11.649 Type 2 diabetes mellitus with hypoglycemia without coma (principal); E78.5 Hyperlipidemia, unspecified; Z79.899 Other long term (current) drug therapy; Z79.84 Long term (current) use of oral hypoglycemic drugs; Z79.82 Long term (current) use of aspirin
CPT/HCPCS: 36415; 80053; 82962 ×4; 85025; 93005; 96365; 99284; J3490; A4663

== ENCOUNTER 2021-09-09 23:33 | Emergency (ER) | payer MEDICARE, OTHER ==
[~2021-09-09] VITALS: Ht 177.8 cm; Wt 95.3 kg
[~2021-09-09 23:33] MED LIST changes: +AMLO-212 PO; -AMLO5TAB9 PO; -Blood Sugar Diagnostic VI; -CLOP75TA15 PO; -ERGO500014 PO; -HYDR-3326 PO; -OMEG1CAP55 PO; -Zolpidem Tartrate PO
[2021-09-10 02:09] VITALS: BP 135/66
--- NOTE | 2021-09-10 02:09 | NUR ---
Patient discharged to home in stable condition WITH SHARON OSWALD PATIENT HOME. Written and verbal after care instructions given. Patient verbalizes understanding of instructions. Stressed follow up or return to ER for worsening s/s.
== END 2021-09-10 02:10 | disposition home or self-care (01) ==
LOC: ER 23:45
DX: M79.652 Pain in left thigh (principal); C34.91 Malignant neoplasm of unspecified part of right bronchus or lung; C79.31 Secondary malignant neoplasm of brain; Z90.2 Acquired absence of lung [part of]; E78.5 Hyperlipidemia, unspecified; E11.9 Type 2 diabetes mellitus without complications; R26.81 Unsteadiness on feet; Z90.5 Acquired absence of kidney; Z79.84 Long term (current) use of oral hypoglycemic drugs; Z79.899 Other long term (current) drug therapy
CPT/HCPCS: 73502; 73551; A4663